=== PATIENT | male | born 1960 ===

== ENCOUNTER 2018-06-12 13:01 | Emergency (ER) | payer SELFPAY ==
[2018-06-12] MEDS ORDERED: CATAPRES PO ONE (17:32)
--- NOTE | 2018-06-12 17:38 | Emergency Department Report ---
ED General Adult HPI - General Chief complaint: High BP Stated complaint: BLOOD PRESSURE HIGH Time Seen by Provider: 06/12/18 16:53 Source: patient Mode of arrival: Ambulatory Limitations: Language Barrier (care associate used) - History of Present Illness Initial comments: 58-year-old male with a past medical history depression and recently diagnosed hypertension presents to the hospital from outpatient clinic with diagnoses of elevated blood pressure. Patient was seen at another outpatient clinic one month ago and BP was elevated. He followed up at another clinic today ([facility]). He complains of intermittent dizziness with walking but denies headache, chest pain, shortness of breath, change in urinary output. Pain equals 0. The clinic did not start any medication and advised patient to go to the ER for evaluation. Severity scale (0 -10): 0 - Related Data Previous Rx's Medication Instructions Recorded Last Taken Type amLODIPine [Norvasc] 10 mg PO DAILY #30 tab 06/12/18 Unknown Rx Allergies Allergy/AdvReac Type Severity Reaction Status Date / Time No Known Allergies Allergy Unverified 06/12/18 13:26 ED Review of Systems ROS: Stated complaint: BLOOD PRESSURE HIGH Other details as noted in HPI Comment: All other systems reviewed and negative ED Past Medical Hx - Past Medical History Hx Hypertension: Yes Hx Psychiatric Treatment: Yes (depression) - Social History Smoking Status: Never Smoker Substance Use Type: Alcohol - Medications Home Medications: Home Medications Medication Instructions Recorded Confirmed Last Taken Type amLODIPine [Norvasc] 10 mg PO DAILY #30 tab 06/12/18 Unknown Rx ED Physical Exam - General Limitations: No Limitations - Other Other exam information: General: No limitations, patient is alert in no acute distress Head exam: Atraumatic, normocephalic Eyes exam: Normal appearance ENT: Moist mucous membrane, normal oropharynx Neck exam: Normal inspection, full range of motion Respiratory exam: Clear to auscultation bilateral, no wheezes, rales, crackles Cardiovascular: Normal rate and rhythm, normal heart sounds Abdomen: Soft, nondistended, and nontender, with normal bowel sounds, no rebound, or guarding Extremity: Full range of motion normal inspection no deformity Back: Normal Inspection, full range of motion, no tenderness Neurologic: Alert, oriented x3, cranial nerves intact, no motor or sensory deficit Psychiatric: normal affect, normal mood Skin: Warm, dry, intact ED Course Vital Signs 0706/12/18 06/12/18 13:23 17:00 17:49 Temperature 98.2 F Pulse Rate 95 H 79 86 Respiratory 16 20 Rate Blood Pressure 185/116 163/107 Blood Pressure 167/103 [Left] O2 Sat by Pulse 97 99 Oximetry 06/12/18 18:51 Temperature 98.6 F Pulse Rate 68 Respiratory 18 Rate Blood Pressure Blood Pressure 151/103 [Left] O2 Sat by Pulse 99 Oximetry ED Medical Decision Making - Lab Data Result diagrams: 06/12/18 17:44 - Medical Decision Making Patient has a new diagnosis of hypertension. He received Clonidine 0.1 milligram in the ED with improvement. Will be discharged Norvasc 10 mg daily and outpatient follow-up encouraged. Patient advised to check his blood pressure at home even with a home machine or when he shops in the store that has BP monitoring. He was informed to report these results to his primary care doctor says clinic so that his medications may be adjusted as necessary. - Differential Diagnosis symptomatic hypertension, hypertensive emergency/urgency Critical Care Time: No Critical care attestation.: If time is entered above; I have spent that time in minutes in the direct care of this critically ill patient, excluding procedure time. ED Disposition Clinical Impression: Hypertension Disposition: DC-01 TO HOME OR SELFCARE Is pt being admited?: No Does the pt Need Aspirin: No Condition: Stable Instructions: Hypertension (ED) Additional Instructions: Take the medication as prescribed. Continue to monitor your blood pressure as discussed and report these results to your doctor so that your medications could be further adjusted. Please return if symptoms worsen as indicated by your discharge instructions. [place] la medicacin segn lo prescrito. [place]ine monitoreando loza presin arterial segn lo discutido e informe estos resultados a loza mdico para que rain medicamentos puedan ajustarse an ms. Por favor regrese si los sntomas empeoran segn lo indicado por rain instrucciones de yamil. Prescriptions: amLODIPine [Norvasc] 10 mg PO DAILY #30 tab Referrals: PRIMARY CARE, [Primary Care Provider] - 3-5 Days Time of Disposition: 19:06
[2018-06-12 18:16] LABS: BUN/Creatinine Ratio 14; Blood Urea Nitrogen 10 mg/dL (9-20); Calcium 9.3 mg/dL (8.4-10.2); Hemolysis Index 4
[2018-06-12 18:52] VITALS: BP 153/103
== END 2018-06-12 19:17 | disposition home or self-care (01) ==
LOC: ED 13:01
DX: I10 Essential (primary) hypertension (principal)
CPT/HCPCS: 36415; 80048; 99283